=== PATIENT | male | born 1955 | race Caucasian/White ===

== ENCOUNTER 2018-02-07 09:57 | Emergency (ER) | payer OTHER ==
[~2018-02-07] VITALS: Ht 160 cm; Wt 80.0 kg
[~2018-02-07 09:57] MED LIST: ADVAIR 250-501 EACH; ASPIRIN325; HYDROCODONE; LIPITOR20 MG; PERCOCET 5-3251 EACH PO; VITAMIN D; [UNRECOGNIZED DRUG - OTHER]
[2018-02-07] MEDS ORDERED: KEFLEX500 M1 PO (10:37)
[2018-02-07 11:00] VITALS: BP 154/74
== END 2018-02-07 11:12 | disposition home or self-care (01) ==
LOC: M.ERS 09:57
DX: S61.217A Laceration without foreign body of left little finger without damage to nail, initial encounter (principal); W26.8XXA Contact with other sharp object(s), not elsewhere classified, initial encounter; Y93.89 Activity, other specified; Y92.89 Other specified places as the place of occurrence of the external cause; Y99.8 Other external cause status; E78.00 Pure hypercholesterolemia, unspecified; Z88.5 Allergy status to narcotic agent